=== PATIENT | male | born 1935 | race African-American/Black ===

== ENCOUNTER → 2017-03-30 | Outpatient (CLI) | payer MEDICARE, MEDICAID ==
[~2017-03-30] MED LIST: ASPI-1159 PO; BARIUM SULFATE 176 GM SUSP.RECON ONE; DOCU-150 PO; DONE5TAB33 PO; FAMO20TA8 PO; FURO20TA4 PO; LISI2.5T47 PO; MEMA10TA2 PO; MEMA1CAP3 PO; MULT-1146 PO; POTA10TA11 PO; SERT25TA74 PO
== END | disposition home or self-care (01) ==
LOC: RAD 09:59
PROVIDERS: ATTEND Internal Medicine Geriatric Medicine
DX: K44.9 Diaphragmatic hernia without obstruction or gangrene (principal)
CPT/HCPCS: 74220